=== PATIENT | male | born 1970 | race Caucasian/White ===

== ENCOUNTER 2020-04-22 14:23 | Outpatient (CLI) | payer MEDICAID ==
[~2020-04-22] VITALS: Ht 177.8 cm; Wt 75.3 kg
[2020-04-22 14:40] VITALS: BP 125/80
[2020-04-22] MEDS ORDERED: DESCOVY (14:42)
[2020-04-22] MEDS ORDERED: BUPROPION XL150 MG ORAL (14:42)
--- NOTE | 2020-04-22 16:00 | Consultation ---
DATE OF CONSULTATION: 04/22/2020 GASTROENTEROLOGY CONSULTATION CONSULTING PHYSICIAN: Romario Desai MD. CHIEF COMPLAINT: Referral for screening colonoscopy. PAST MEDICAL HISTORY: 1. Anxiety and depression. 2. Kidney stones. PAST SURGICAL HISTORY: Left ankle ORIF. MEDICATIONS: . FAMILY HISTORY: Noncontributory. SOCIAL HISTORY: The patient drinks socially. Denies any tobacco usage. Denies IV drug abuse. ALLERGIES: No known allergies. REVIEW OF SYSTEMS: Negative. PHYSICAL EXAMINATION: VITAL SIGNS: Temperature 97.6, blood pressure 124/80, pulse 100, respirations 20. HEENT: Normocephalic and atraumatic. Sclerae are anicteric. NECK: Supple. No evidence of obvious lymphadenopathy. CARDIOVASCULAR: Regular rate and rhythm. Plus S1 and S2. LUNGS: Clear to auscultation bilaterally. ABDOMEN: Positive bowel sounds. Soft and nontender. No rebound. No guarding. No peritoneal sign. EXTREMITIES: No cyanosis, no clubbing, no edema. ASSESSMENT AND PLAN: A 49-year-old male referred for screening colonoscopy. The patient was informed of the risks and benefits of procedure. We will plan for procedure when authorization is obtained. Romario Desai M.D. DR: JARAD JOB#: [id number] CC:
== END 2020-04-22 16:23 | disposition home or self-care (01) ==
LOC: PAN 14:23
DX: Z00.00 Encounter for general adult medical examination without abnormal findings (principal); F41.9 Anxiety disorder, unspecified; F32.9 Major depressive disorder, single episode, unspecified; Z87.442 Personal history of urinary calculi
CPT/HCPCS: G0463